=== PATIENT | female | born 1940 | race Caucasian/White ===

== ENCOUNTER 2019-08-03 14:34 | Emergency (ER) | payer MEDICARE, BC ==
--- NOTE | 2019-08-03 20:57 | RAD ---
CHEST TWO VIEWS: Date: 08-03-19 Comparison: None available. FINDINGS: The heart is normal in size. The lungs are clear. There is no sign of pneumonia or pleural effusion. There is no vascular congestion or edema. The lateral view shows a very prominent anterior compressio n of a vertebrae near the thoracolumbar junction. This is probably not new. IMPRESSION: 1. No acute thoracic finding. 2. Vertebral compression as noted. POS: HOME
== END 2019-08-03 15:16 | disposition home or self-care (01) ==
LOC: BURERS 14:34
DX: J06.9 Acute upper respiratory infection, unspecified (principal)
CPT/HCPCS: 71046; 93005

== ENCOUNTER 2025-04-17 11:56 | Emergency (ER) | payer MEDICARE, BC ==
[2025-04-17] MEDS ORDERED: Ketorolac Tromethamine 30 MG (1 mL) VIAL ONE (12:16)
== END 2025-04-17 13:14 | disposition home or self-care (01) ==
LOC: BURERS 11:56
DX: S22.079A Unspecified fracture of T9-T10 vertebra, initial encounter for closed fracture (principal); M51.360 Other intervertebral disc degeneration, lumbar region with discogenic back pain only; W18.30XA Fall on same level, unspecified, initial encounter
CPT/HCPCS: 72131; 72192; 96372; J1885